=== PATIENT | male | born 1935 | race Caucasian/White ===

== ENCOUNTER → 2017-02-19 | Day surgery (SDC) | payer OTHER ==
[2017-02-06 07:45] VITALS: Ht 188 cm; Wt 105.9 kg
[~2017-02-19] VITALS: Ht 188 cm; Wt 105.9 kg
[~2017-02-19] MED LIST: ACETAMINOPHEN 325 MG TAB ONE; ACETAMINOPHEN 325 MG TAB PO PRN; ALBU1AER9 INH; ASPCH81X PO; ATROPINE SULFATE 0.1 MG/ML 5ML SYR IV PRN; BIMA0.01 OPL; BRIM0.1S OPR; BRIN1SUS OPB; BSS FLUSH ONE; CALC200S NAE; CALC500C70 PO; CYAN10005 PO; EDTA OP ONE; GLC/500 PO; KETO1DRO13 OPB; LACTATED RINGER'S 1000ML 500 ML IV ONE; LIDOCAINE 3.5% OPH GEL PER APPLICATION CHARGE OPL SCH; LIDOCAINE 4% OP SOLN DROP CHARGE ONE; LIDOCAINE 4% OP SOLN DROP CHARGE OPL SCH; MAGN400T6 PO; METO25TA3 PO; MIDAZOLAM HCL 1 MG/ML 2ML VIAL ONE; MOXIFLOXACIN OPH SOLN PER DROP CHARGE ONE; OMEG10007 PO; POLY335019 PO; POTA20TA16 PO; POVIDONE-IODINE OP SOLN 30 ML BTL ONE; PROPARACAINE 0.5% OP SOLN PER DROP CHARGE OPL SCH; TORS20TA2 PO; [UNRECOGNIZED DRUG - OTHER] OP ONE
[2017-02-19] MEDS: MOXIFLOXACIN OPH SOLN PER DROP CHARGE OPL SCH ×3 (12:00→12:20)
--- NOTE | 2017-02-19 12:24 | History & Physical Bridge - [place] ---
H&P Re-Evaluation Bridge Note: I have examined the patient, reviewed the History & Physical and in the interval since the performance of the History & Physical I have noted the following changes of clinical significance: No changes noted
--- NOTE | 2017-02-19 13:28 | Discharge Instructions-SurgCtr ---
Discharge Instructions Date of Service Feb 19, 2017. Visit Reason for Visit: Left Eye Band Keratopathy Discharge Discharge Diagnosis / Problem: left eye band keratopathy Discharge Goals Goal(s): Improve function Medications Stopped Medications Name(s): Held Metformin x 48 hrs. Activity Recommendations Activity Limitations: per Instructions/Follow-up section Lifting Limitations: none Anesthesia . Post Anesthesia Instructions: If you have had General Anesthesia or IV Sedation: * Do not drive today. * Resume driving when surgeon permits. * Do not make important decisions or sign legal documents today. * Call surgeon for: 1. Temperature elevations greater than 101 degrees F. 2. Uncontrollable pain. 3. Excessive bleeding. 4. Persistent nausea and vomiting. 5. Medication intolerance (nausea, vomiting or rash). * For nausea and vomiting use only clear liquids such as: tea, soda, bouillon until nausea subsides, then gradually increase diet as tolerated. * If you have any concerns or questions, call your surgeon's office. If physician is unavailable and it is an emergency, call 911 or go to the nearest emergency room. . Instructions / Follow-Up Instructions / Follow-Up ACTIVITY RECOMMENDATIONS: * Light activities * You may walk outside, read, watch television. * Mild irritation and blurred vision are common for the first few days, redness around the white part of the eye is common. MEDICATIONS: Resume previous medications unless instructed otherwise by your surgeon. Eye drops (today and tomorrow): Vigamox - one drop in operative eye 4 times daily Prednisolone 1% - one drop in operative eye 4 times daily SPECIAL CARE INSTRUCTIONS: * If any problems or concerns, please call Dr. Cassidy's office at . * Keep plastic shield taped over eye to sleep at night. * Keep plastic shield taped over eye except to administer eye drops. * Keep plastic shield on until office visit the following day. FOLLOW UP VISIT: Follow-up with Dr. Cassidy in the [place] office as scheduled. If not already scheduled, please call the office at . Diet Recommendations Home Diet: resume previous diet Procedures Procedures Performed: Left Eye Lamellar Keratectomy With EDTA Chelation Pending Studies Studies pending at discharge: no Medical Emergencies . Who to Call and When: Medical Emergencies: If at any time you feel your situation is an emergency, please call 911 immediately. . Non-Emergent Contact Non-Emergency issues call your: [employer] . . "Provider Documentation" section prepared by Wing Cassidy.
--- NOTE | 2017-02-19 13:29 | [facility] Post Operative Brief Note ---
Immediate Operative Summary Operative Date Feb 19, 2017. Pre-Operative Diagnosis Band keratopathy left eye Post-Operative Diagnosis same Procedure(s) Performed Left Eye Lamellar Keratectomy With EDTA Chelation Surgeon Dr Cassidy Cobbler Apprentice Surgeon(s) 0 Estimated Blood Loss 0 Findings band keratopathy left eye Specimens 0 Complication(s) None Disposition Recovery Room / PACU
[2017-02-19 13:53] VITALS: BP 129/73; PULSE 70; TEMP 36.4; O2SAT 99
--- NOTE | 2017-02-19 14:57 | Anesthesia Progress Nt - [facility] ---
Anesthesia Post Op Note Date & Time Feb 19, 2017 at 14:56 Vital Signs Pain Intensity: 4 Vital Signs Past 12 Hours Date Time Temp Pulse Resp B/P Pulse Ox O2 Delivery O2 Flow Rate FiO2 02/19/17 13:53 36.4 70 16 129/73 99 Room Air 02/19/17 13:30 36.4 63 16 134/76 97 Room Air 02/19/17 11:48 36.5 57 20 126/69 96 Room Air Notes Mental Status: alert / awake / arousable, participated in evaluation Pt Amnestic to Procedure: Yes Nausea / Vomiting: adequately controlled Pain: adequately controlled Airway Patency, RR, SpO2: stable & adequate BP & HR: stable & adequate Hydration State: stable & adequate Anesthetic Complications: no major complications apparent
--- NOTE | 2017-02-19 17:54 | OPERATIVE REPORT ---
DATE OF OPERATION: 02/19/2017 PREOPERATIVE DIAGNOSIS: Calcific band keratopathy, left eye. POSTOPERATIVE DIAGNOSIS: Same. PROCEDURE PERFORMED: Lamellar keratectomy with EDTA chelation, left eye. SURGEON: Wing Cassidy MD COMPLICATIONS: None. ESTIMATED BLOOD LOSS: None. ANESTHESIA: Local with sedation. DESCRIPTION OF PROCEDURE: After informed consent was obtained in the holding area, the patient was taken to the operating room where cardiac monitoring leads and oxygen by nasal cannula was administered by anesthesia. Gentle IV sedation was given, and the patient's left eye was prepped and draped in usual sterile fashion. A wire lid speculum was placed in the left eye and the operating microscope swung into position. Using a 57 [place] blade, the epithelium was removed from the central band of the patient's left eye. Weck-Gladis sponges were trimmed and then soaked into the EDTA solution and placed over the area of band keratopathy of the left eye. The sponges were changed 3 times over the course of 20 minutes leaching the calcium from the cornea. Once this was completed, the eye was irrigated with 2 full bottles of BSS and a bandage contact lens was placed on it. The wire lid speculum was removed from the eye and Vigamox was placed on the eye. The patient tolerated the procedure well and was taken to recovery area in stable condition. I attest to the content of the Intraoperative Record and any orders documented therein. Any exceptions are noted below. MTDD
== END | disposition home or self-care (01) ==
LOC: X.SURG 11:21
PROVIDERS: ATTEND Ophthalmology
DX: H18.422 Band keratopathy, left eye (principal); J44.9 Chronic obstructive pulmonary disease, unspecified; I10 Essential (primary) hypertension; E11.9 Type 2 diabetes mellitus without complications; Z95.2 Presence of prosthetic heart valve; Z90.89 Acquired absence of other organs; Z98.890 Other specified postprocedural states; Z68.30 Body mass index [BMI] 30.0-30.9, adult; J45.909 Unspecified asthma, uncomplicated; H40.9 Unspecified glaucoma; Z87.891 Personal history of nicotine dependence; Z91.040 Latex allergy status